=== PATIENT | female | born 1940 | race Caucasian/White ===

== ENCOUNTER 2016-09-19 09:43 | Day surgery (SDC) | payer MEDICARE ==
[~2016-09-19] VITALS: Ht 152.4 cm; Wt 46.3 kg
[2016-09-19 10:11] VITALS: BP 129/52
[2016-09-19] MEDS ORDERED: SODIUM CHLORIDE 0.9% 1,000 ML IV SCH (10:30)
[2016-09-19] MEDS ORDERED: MONT10TA6 PO (10:42)
[2016-09-19] MEDS ORDERED: FLUT9.9S PO (10:42)
[2016-09-19] MEDS ORDERED: DIPH25TA65 PO (10:42)
[2016-09-19] MEDS ORDERED: AMLO5TAB2 PO (10:42)
[2016-09-19] MEDS ORDERED: CALC1TAB86 PO (10:42)
[2016-09-19] MEDS ORDERED: HYDR12.53 PO (10:42)
[2016-09-19] MEDS ORDERED: ATOR10TA9 PO (10:42)
[2016-09-19] MEDS ORDERED: RIVA20TA PO (10:42)
[2016-09-19] MEDS ORDERED: LOSA25TA5 PO (10:42)
[2016-09-19] MEDS ORDERED: METO25TA35 PO (10:42)
[2016-09-19] MEDS ORDERED: PROPOFOL 10 MG/ML, 50ML ONE (11:44)
== END 2016-09-19 13:37 | disposition home or self-care (01) ==
LOC: CACL 09:43
PROVIDERS: ATTEND Internal Medicine Cardiovascular Disease
DX: I34.0 Nonrheumatic mitral (valve) insufficiency (principal); I35.1 Nonrheumatic aortic (valve) insufficiency; I35.0 Nonrheumatic aortic (valve) stenosis; I34.2 Nonrheumatic mitral (valve) stenosis; I25.10 Atherosclerotic heart disease of native coronary artery without angina pectoris; I36.1 Nonrheumatic tricuspid (valve) insufficiency; I37.1 Nonrheumatic pulmonary valve insufficiency; I10 Essential (primary) hypertension; J45.909 Unspecified asthma, uncomplicated; E78.5 Hyperlipidemia, unspecified; I48.0 Paroxysmal atrial fibrillation
CPT/HCPCS: 93312; 93321; 93325; J2704

== ENCOUNTER 2016-10-05 10:10 | Day surgery (SDC) | payer MEDICARE ==
[~2016-10-05] VITALS: Ht 152.4 cm; Wt 46.4 kg
[~2016-10-05 10:10] MED LIST: AMLO5TAB2 PO; ATOR10TA9 PO; CALC1TAB86 PO; DIPH25TA65 PO; FLUT9.9S PO; HYDR12.53 PO; LOSA25TA5 PO; METO25TA35 PO; MONT10TA6 PO; RIVA20TA PO
[2016-10-05] MEDS ORDERED: SODIUM CHLORIDE 0.9% 1,000 ML IV SCH (10:42)
[2016-10-05 10:47] VITALS: BP 132/59
[2016-10-05] MEDS ORDERED: ONDANSETRON 2MG/ML, 2ML IVPush PRN (11:00)
[2016-10-05] MEDS ORDERED: ASPIRIN 325 MG TABLET EC PO ONE (11:00)
[2016-10-05] MEDS ORDERED: ACETAMINOPHEN 325 MG TABLET PO PRN (11:00)
[2016-10-05] MEDS ORDERED: BISACODYL 10 MG SUPP PR PRN (11:00)
[2016-10-05] MEDS ORDERED: BISACODYL 5 MG EC TABLET PO PRN (11:00)
[2016-10-05] MEDS ORDERED: ZOLPIDEM 5MG TABLET PO PRN (11:00)
[2016-10-05] MEDS ORDERED: ASPIRIN 325 MG TABLET EC ONE (11:35)
[2016-10-05] MEDS ORDERED: FENTANYL PF 100 MCG/2ML ONE (11:47)
[2016-10-05] MEDS ORDERED: MIDAZOLAM 1 MG/ML, 5ML ONE (11:48)
[2016-10-05] MEDS ORDERED: LIDOCAINE 2%, 20ML ONE (11:48)
[2016-10-05] MEDS ORDERED: SODIUM CHLORIDE 0.9% 500 ML IV SCH (13:00)
== END 2016-10-05 15:49 | disposition home or self-care (01) ==
LOC: CACL 10:10
PROVIDERS: ATTEND Internal Medicine Cardiovascular Disease
DX: I25.10 Atherosclerotic heart disease of native coronary artery without angina pectoris (principal); I10 Essential (primary) hypertension; E78.2 Mixed hyperlipidemia; I34.2 Nonrheumatic mitral (valve) stenosis; I48.0 Paroxysmal atrial fibrillation; Z82.49 Family history of ischemic heart disease and other diseases of the circulatory system
CPT/HCPCS: 93005; 93458; C1894; J2250; J3010; J3490; Q9967

== ENCOUNTER 2016-11-15 05:12 | Inpatient (IN) | payer MEDICARE ==
[2016-11-14 14:16] LABS: PATH.CAST-FLAG NOT PRESENT; SPERM-FLAG NOT PRESENT; SRC-FLAG NOT PRESENT; XTAL-FLAG NOT PRESENT; YLC-FLAG NOT PRESENT
[2016-11-14 14:31] LABS: BLOOD UREA NITROGEN 11 mg/dL (7-18)
[2016-11-14 14:35] LABS: ASPARTATE AMINO TRANSFERASE 26 U/L (15-37)
[~2016-11-15] VITALS: Ht 152.4 cm; Wt 54.2 kg
[2016-11-15 05:30] VITALS: BP_SYST 134; BP_SYST 138; BP_DIAS 66; BP_DIAS 68
[2016-11-15] MEDS ORDERED: CHLORHEXIDINE MOUTHWASH 15 ML UDC MM SCH (05:30)
[2016-11-15] MEDS ORDERED: ALBUMIN HUMAN 5% 500 ML IV ONE (05:30)
[2016-11-15] MEDS ORDERED: INSULIN ASPART 100 UNITS/ML, PEN SQ-INSULIN SCH (06:00)
[2016-11-15] MEDS ORDERED: MIDAZOLAM 10MG/2 ML ONE (06:37)
[2016-11-15] MEDS ORDERED: FENTANYL PF 1000 MCG/20ML ONE (06:37)
[2016-11-15] MEDS ORDERED: MANNITOL PMX 20% 500 ML IVPB PRN (07:30)
[2016-11-15] MEDS ORDERED: VANCOMYCIN 700 MG in SODIUM CHLORIDE 0.9% 100 ML IV PRN (07:30)
[2016-11-15] MEDS ORDERED: EPINEPHRINE 2 MG in SODIUM CHLORIDE 0.9% 248 ML IV SCH (07:30)
[2016-11-15] MEDS ORDERED: PHENYLEPHRINE 10 MG in SODIUM CHLORIDE 0.9% 249 ML IV PRN ×2 (07:30→10:13)
[2016-11-15] MEDS ORDERED: DEXMEDETOMIDINE 200 MCG in SODIUM CHLORIDE 0.9% 48 ML IV SCH (07:30)
[2016-11-15] MEDS ORDERED: REGULAR INSULIN 62.5 UNITS in SODIUM CHLORIDE 0.9% 249.375 ML IV PRN ×2 (07:30→10:13)
[2016-11-15] MEDS ORDERED: POTASSIUM CHLORIDE 80 MEQ, SODIUM BICARBONATE 8.4% 10 MEQ, MAGNESIUM SULFATE 0.5 GM, LI... IV PRN (07:30)
[2016-11-15] MEDS ORDERED: MUPIROCIN OINT 2%, 22GM TP SCH (09:00)
[2016-11-15] MEDS ORDERED: SODIUM CHLORIDE 0.9% 1,000 ML IV PRN ×2 (10:13→12:00)
[2016-11-15] MEDS ORDERED: SODIUM CHLORIDE 0.9% 1,000 ML IV ONE (10:13)
[2016-11-15] MEDS ORDERED: DOBUTAMINE 250 MG in SODIUM CHLORIDE 0.9% 230 ML IV PRN (10:13)
[2016-11-15] MEDS ORDERED: DEXMEDETOMIDINE 200 MCG in SODIUM CHLORIDE 0.9% 48 ML IV PRN (10:13)
[2016-11-15] MEDS ORDERED: NITROGLYCERIN/D5W PMX 250 ML IV PRN (10:13)
[2016-11-15] MEDS ORDERED: ACETAMINOPHEN 650 MG SUPP PR PRN (10:30)
[2016-11-15] MEDS ORDERED: MEPERIDINE/PF 25MG/0.5ML IVPush PRN (10:30)
[2016-11-15] MEDS ORDERED: PROCHLORPERAZINE 5 MG/ML, 2ML IVPush PRN (10:30)
[2016-11-15] MEDS ORDERED: EPINEPHRINE 2 MG in SODIUM CHLORIDE 0.9% 248 ML IV PRN (10:30)
[2016-11-15] MEDS ORDERED: HYDROcodone/APAP 10/325 MG TABLET PO PRN (10:30)
[2016-11-15] MEDS ORDERED: DEXTROSE 4 GM TAB.CHEW PO PRN (10:30)
[2016-11-15] MEDS ORDERED: MIDAZOLAM 1 MG/ML, 5ML IVPush PRN (10:30)
[2016-11-15] MEDS ORDERED: GLUCAGON 1 MG IM PRN (10:30)
[2016-11-15] MEDS ORDERED: BISACODYL 10 MG SUPP PR PRN (10:30)
[2016-11-15] MEDS ORDERED: SODIUM BICARB 8.4%, 50ML SYRINGE IV PRN (10:30)
[2016-11-15] MEDS ORDERED: BISACODYL 5 MG EC TABLET PO PRN (10:30)
[2016-11-15] MEDS ORDERED: DEXTROSE 50%, 50ML SYRINGE IVPush PRN (10:30)
[2016-11-15] MEDS ORDERED: AMINOCAPROIC ACID 250 MG/ML, 20ML ONE (10:37)
[2016-11-15] MEDS ORDERED: ALBUMIN HUMAN 25% 50 ML ONE (10:37)
[2016-11-15] MEDS ORDERED: CALCIUM CHLORIDE 10%, 10ML SYR ONE (10:37)
[2016-11-15] MEDS ORDERED: HEPARIN 1,000 UNITS/ML, 30ML ONE ×2 (10:37→10:39)
[2016-11-15] MEDS ORDERED: PROTAMINE SULFATE 10 MG/ML, 25ML ONE (10:37)
[2016-11-15] MEDS ORDERED: LIDOCAINE 2% 100MG/5ML SYRINGE ONE (10:38)
[2016-11-15] MEDS ORDERED: HEPARIN 1,000 UNITS/ML, 10ML ONE (10:38)
[2016-11-15 10:57] LABS: ABG COLLECTION SITE ARTERIAL LINE
[2016-11-15] MEDS: KSCALE TO 4.5 IV SCH ×3 (11:34→22:30)
[2016-11-15] MEDS: MAGNESIUM SULFATE 1 GM in SODIUM CHLORIDE 0.9% 50 ML IVPB SCH (11:49)
[2016-11-15] MEDS: SODIUM CHLORIDE FLUSH 10ML SYR IVF SCH ×3 (11:49→21:39)
[2016-11-15] MEDS: LACTATED RINGERS 500 ML IVBOLUS PRN ×2 (12:15→14:09)
[2016-11-15] MEDS: morphine SULFATE 10 MG/ML, 1ML IVPush PRN ×2 (13:15→23:02)
[2016-11-15] MEDS ORDERED: ROCURONIUM 10 MG/ML ONE (15:15)
[2016-11-15] MEDS ORDERED: PROPOFOL 10 MG/ML, 20ML ONE (15:15)
[2016-11-15] MEDS: ONDANSETRON 2MG/ML, 2ML IVPush PRN ×2 (16:31→22:26)
[2016-11-15] MEDS ORDERED: ALBUMIN HUMAN 5% 250 ML IV ONE (17:00)
[2016-11-15] MEDS ORDERED: POTASSIUM CHLORIDE 30 MEQ in SODIUM CHLORIDE 0.9% 100 ML IV ONE (17:30)
[2016-11-15] MEDS: CEFUROXIME 1.5 GM in SODIUM CHLORIDE 0.9% 50 ML IVPB SCH (19:11)
[2016-11-15] MEDS: VANCOMYCIN 700 MG in SODIUM CHLORIDE 0.9% 250 ML IVPB SCH (19:36)
[2016-11-15] MEDS: ACETAMINOPHEN 325 MG TABLET PO PRN (19:53)
[2016-11-15] MEDS: DOCUSATE 100 MG CAPSULE PO SCH (21:39)
[2016-11-15] MEDS: MUPIROCIN OINT 2%, 22GM NAS SCH (21:39)
[2016-11-15] MEDS: INSULIN ASPART 100 UNITS/ML, PEN SQ-INSULIN PRN (22:30)
[2016-11-15] MEDS ORDERED: POTASSIUM CHLORIDE PMX 100 ML IV ONE (23:45)
[2016-11-16] MEDS: INSULIN ASPART 100 UNITS/ML, PEN SQ-INSULIN PRN ×6 (00:10→21:04)
[2016-11-16] MEDS: KSCALE TO 4.5 IV SCH ×2 (04:30→10:39)
[2016-11-16 05:51] LABS: ABG COLLECTION SITE ARTERIAL LINE
[2016-11-16 05:52] LABS: BLOOD UREA NITROGEN 8 mg/dL (7-18)
[2016-11-16] MEDS: CEFUROXIME 1.5 GM in SODIUM CHLORIDE 0.9% 50 ML IVPB SCH (06:30)
[2016-11-16] MEDS: VANCOMYCIN 700 MG in SODIUM CHLORIDE 0.9% 250 ML IVPB SCH (06:36)
[2016-11-16] MEDS: ONDANSETRON 2MG/ML, 2ML IVPush PRN (06:36)
[2016-11-16] MEDS: OXYcodone IR 5MG TABLET PO PRN ×5 (07:30→22:46)
[2016-11-16] MEDS ORDERED: CALCIUM CHLORIDE 13.6 MEQ in SODIUM CHLORIDE 0.9% 100 ML IV ONE (07:30)
[2016-11-16] MEDS ORDERED: ETOMIDATE 20 MG/10 ML ONE (08:00)
[2016-11-16] MEDS ORDERED: PROPOFOL 10 MG/ML, 100ML IV ONE (08:00)
[2016-11-16] MEDS ORDERED: MIDAZOLAM 1 MG/ML, 5ML ONE (08:00)
[2016-11-16] MEDS: PANTOPRAZOLE 40 MG IV IVPush SCH (08:08)
[2016-11-16] MEDS: SODIUM CHLORIDE FLUSH 10ML SYR IVF SCH ×4 (08:08→21:04)
[2016-11-16] MEDS: DOCUSATE 100 MG CAPSULE PO SCH ×2 (08:09→21:00)
[2016-11-16] MEDS: MUPIROCIN OINT 2%, 22GM NAS SCH ×2 (08:09→21:04)
[2016-11-16] MEDS: ASPIRIN 81 MG TABLET EC PO SCH (08:09)
[2016-11-16] MEDS ORDERED: DOBUTAMINE/D5W PMX 0 ML ONE (09:41)
[2016-11-16] MEDS: CHLORHEXIDINE MOUTHWASH 15 ML UDC MM SCH ×2 (10:33→21:04)
[2016-11-16] MEDS ORDERED: LIDOCAINE 2%, 20ML ONE (10:48)
[2016-11-16] MEDS ORDERED: SODIUM CHLORIDE 0.9%, 500ML IVBOLUS ONE ×2 (12:30→15:45)
[2016-11-16] MEDS: MAGNESIUM SULFATE 1 GM in SODIUM CHLORIDE 0.9% 50 ML IVPB SCH (13:01)
[2016-11-16] MEDS ORDERED: FUROSEMIDE 20 MG/2 ML IV ONE ×2 (14:30→15:00)
[2016-11-16] MEDS ORDERED: MIDAZOLAM 1 MG/ML, 2ML IVPush ONE (15:29)
[2016-11-16] MEDS ORDERED: PHARMACY MAY ADJ FOR RENAL FX MC SCH (15:30)
[2016-11-16] MEDS ORDERED: LIDOCAINE-MPF 1%, 2ML ENDO PRN (15:30)
[2016-11-16] MEDS ORDERED: ETOMIDATE 20 MG/10 ML IVPush ONE (15:31)
[2016-11-16] MEDS: CEFTRIAXONE PMX 1GM/50ML 50 ML IV SCH (16:19)
[2016-11-16] MEDS: METRONIDAZOLE PMX 500MG/100ML 100 ML IV SCH ×2 (16:44→22:46)
[2016-11-16 17:04] LABS: ABG COLLECTION SITE ARTERIAL LINE
[2016-11-16] MEDS ORDERED: SODIUM BICARB 8.4%, 50ML SYRINGE IVPush ONE (17:30)
[2016-11-16] MEDS ORDERED: WARFARIN 5 MG TABLET PO-COUM ONE (18:00)
[2016-11-16] MEDS: NS + 20MEQ KCL 1,000 ML IV SCH (18:01)
[2016-11-16] MEDS: ALBUTEROL/IPRATROPIUM 2.5MG/0.5MG, 3 ML INLINE SCH ×3 (18:30→23:00)
[2016-11-16] MEDS: ACETAMINOPHEN 325 MG TABLET PO PRN (21:52)
[2016-11-17] MEDS: ALBUTEROL/IPRATROPIUM 2.5MG/0.5MG, 3 ML INLINE SCH ×6 (02:10→23:00)
[2016-11-17] MEDS: OXYcodone IR 5MG TABLET PO PRN ×3 (02:30→15:34)
[2016-11-17 04:26] LABS: ABG COLLECTION SITE NOT DOCUMENTED
[2016-11-17 05:37] LABS: BLOOD UREA NITROGEN 16 mg/dL (7-18)
[2016-11-17] MEDS: PROPOFOL 100 ML IV PRN (06:18)
[2016-11-17] MEDS: NS + 20MEQ KCL 1,000 ML IV SCH ×2 (06:57→21:09)
[2016-11-17] MEDS ORDERED: FUROSEMIDE 40 MG/4 ML ONE (07:28)
[2016-11-17] MEDS: METRONIDAZOLE PMX 500MG/100ML 100 ML IV SCH ×3 (07:44→22:45)
[2016-11-17] MEDS: INSULIN ASPART 100 UNITS/ML, PEN SQ-INSULIN PRN ×4 (07:49→21:09)
[2016-11-17] MEDS ORDERED: FUROSEMIDE 40 MG/4 ML IV ONE (08:00)
[2016-11-17] MEDS ORDERED: POTASSIUM CHLORIDE PMX 100 ML IV ONE ×2 (08:00→16:00)
[2016-11-17] MEDS: KSCALE TO 4.5 IV SCH ×3 (08:00→20:00)
[2016-11-17] MEDS: SODIUM CHLORIDE FLUSH 10ML SYR IVF SCH ×4 (09:00→21:08)
[2016-11-17] MEDS: MUPIROCIN OINT 2%, 22GM NAS SCH ×2 (09:36→21:08)
[2016-11-17] MEDS: PANTOPRAZOLE 40 MG IV IVPush SCH (09:36)
[2016-11-17] MEDS: DOCUSATE 100 MG CAPSULE PO SCH ×2 (09:36→21:00)
[2016-11-17] MEDS: ASPIRIN 81 MG TABLET EC PO SCH (09:37)
[2016-11-17] MEDS: ENOXAPARIN 40 MG/0.4 ML SQ SCH (09:37)
[2016-11-17] MEDS: CHLORHEXIDINE MOUTHWASH 15 ML UDC MM SCH ×2 (10:30→21:09)
[2016-11-17] MEDS: MAGNESIUM SULFATE 1 GM in SODIUM CHLORIDE 0.9% 50 ML IVPB SCH (12:08)
[2016-11-17] MEDS: CEFTRIAXONE PMX 1GM/50ML 50 ML IV SCH (15:52)
[2016-11-17] MEDS ORDERED: WARFARIN 5 MG TABLET PO-COUM ONE (18:00)
[2016-11-17] MEDS: FUROSEMIDE 40 MG/4 ML IV SCH (22:45)
[2016-11-18] MEDS: KSCALE TO 4.5 IV SCH ×4 (02:00→20:00)
[2016-11-18] MEDS: ALBUTEROL/IPRATROPIUM 2.5MG/0.5MG, 3 ML INLINE SCH ×2 (03:00→05:27)
[2016-11-18 03:07] LABS: BLOOD UREA NITROGEN 14 mg/dL (7-18)
[2016-11-18] MEDS ORDERED: POTASSIUM CHLORIDE PMX 100 ML IV ONE ×2 (05:00→11:00)
[2016-11-18] MEDS: PROPOFOL 100 ML IV PRN (05:50)
[2016-11-18] MEDS: METRONIDAZOLE PMX 500MG/100ML 100 ML IV SCH ×3 (08:02→23:43)
[2016-11-18] MEDS: FUROSEMIDE 40 MG/4 ML IV SCH ×2 (08:02→21:17)
[2016-11-18] MEDS: MUPIROCIN OINT 2%, 22GM NAS SCH ×2 (08:36→21:17)
[2016-11-18] MEDS: ASPIRIN 81 MG TABLET EC PO SCH (08:36)
[2016-11-18] MEDS: DOCUSATE 100 MG CAPSULE PO SCH ×2 (09:00→21:17)
[2016-11-18] MEDS: SODIUM CHLORIDE FLUSH 10ML SYR IVF SCH ×2 (10:14→21:17)
[2016-11-18] MEDS: PANTOPRAZOLE 40 MG IV IVPush SCH (10:14)
[2016-11-18] MEDS: METOPROLOL TARTRATE 25 MG TABLET PO SCH ×2 (10:14→17:02)
[2016-11-18] MEDS: ENOXAPARIN 40 MG/0.4 ML SQ SCH (10:52)
[2016-11-18] MEDS: NS + 20MEQ KCL 1,000 ML IV SCH ×2 (13:50→21:19)
[2016-11-18] MEDS: INSULIN ASPART 100 UNITS/ML, PEN SQ-INSULIN PRN ×2 (13:56→18:38)
[2016-11-18] MEDS: CEFTRIAXONE PMX 1GM/50ML 50 ML IV SCH (13:59)
[2016-11-18] MEDS ORDERED: POTASSIUM CHLORIDE 30 MEQ in SODIUM CHLORIDE 0.9% 100 ML IV ONE (17:00)
[2016-11-18] MEDS: ACETAMINOPHEN 325 MG TABLET PO PRN (17:17)
[2016-11-18] MEDS ORDERED: WARFARIN 3 MG TABLET PO-COUM ONE (18:00)
[2016-11-18] MEDS: ONDANSETRON 2MG/ML, 2ML IVPush PRN (21:26)
[2016-11-19] MEDS: KSCALE TO 4.5 IV SCH (04:00)
[2016-11-19 04:19] LABS: ABG COLLECTION SITE RIGHT BRACHIAL
[2016-11-19 04:27] LABS: BLOOD UREA NITROGEN 15 mg/dL (7-18)
[2016-11-19] MEDS ORDERED: POTASSIUM CHLORIDE PMX 100 ML IV ONE (05:00)
[2016-11-19] MEDS: ONDANSETRON 2MG/ML, 2ML IVPush PRN ×3 (06:22→19:24)
[2016-11-19] MEDS: METOPROLOL TARTRATE 25 MG TABLET PO SCH ×2 (06:26→17:58)
[2016-11-19] MEDS: INSULIN ASPART 100 UNITS/ML, PEN SQ-INSULIN PRN ×4 (07:45→20:35)
[2016-11-19] MEDS: METRONIDAZOLE PMX 500MG/100ML 100 ML IV SCH (07:46)
[2016-11-19] MEDS: DOCUSATE 100 MG CAPSULE PO SCH ×2 (07:46→19:26)
[2016-11-19] MEDS: PANTOPRAZOLE 40 MG IV IVPush SCH (07:46)
[2016-11-19] MEDS: ASPIRIN 81 MG TABLET EC PO SCH (07:46)
[2016-11-19] MEDS: MUPIROCIN OINT 2%, 22GM NAS SCH ×2 (07:47→19:25)
[2016-11-19] MEDS: POTASSIUM CHLORIDE 20 MEQ PACKET PO SCH (07:58)
[2016-11-19] MEDS: SODIUM CHLORIDE FLUSH 10ML SYR IVF SCH ×2 (07:59→19:25)
[2016-11-19] MEDS: ENOXAPARIN 40 MG/0.4 ML SQ SCH (08:43)
[2016-11-19] MEDS ORDERED: FUROSEMIDE 40 MG/4 ML IV SCH (09:00)
[2016-11-19] MEDS ORDERED: WARFARIN 1 MG TABLET PO-COUM ONE (18:00)
[2016-11-20 04:54] LABS: BLOOD UREA NITROGEN 21 mg/dL (7-18)
[2016-11-20] MEDS ORDERED: AMIODARONE 150 MG in DEXTROSE 5% 100 ML IV ONE (05:30)
[2016-11-20] MEDS ORDERED: AMIODARONE 900 MG in DEXTROSE 5% 482 ML IV PRN (05:30)
[2016-11-20] MEDS ORDERED: FILTER 0.22 MICRON IV PRN (05:30)
[2016-11-20] MEDS: INSULIN ASPART 100 UNITS/ML, PEN SQ-INSULIN PRN ×2 (05:55→11:57)
[2016-11-20] MEDS: METOPROLOL TARTRATE 25 MG TABLET PO SCH ×2 (07:07→18:26)
[2016-11-20] MEDS ORDERED: POTASSIUM CHLORIDE 20 MEQ TAB.ER.PRT PO ONE (08:00)
[2016-11-20] MEDS ORDERED: MAGNESIUM HYDROXIDE 8%, 30ML UDC PO PRN (08:30)
[2016-11-20] MEDS: DOCUSATE 100 MG CAPSULE PO SCH ×2 (09:10→21:21)
[2016-11-20] MEDS: ASPIRIN 81 MG TABLET EC PO SCH (09:12)
[2016-11-20] MEDS: MUPIROCIN OINT 2%, 22GM NAS SCH (09:12)
[2016-11-20] MEDS: FUROSEMIDE 20 MG TABLET PO SCH (09:12)
[2016-11-20] MEDS: PANTOPROZOLE 40MG TABLET PO SCH (10:21)
[2016-11-20] MEDS: POTASSIUM CHLORIDE 20 MEQ PACKET PO SCH (11:56)
[2016-11-20 14:56] VITALS: BP 146/68
[2016-11-20] MEDS ORDERED: WARFARIN 1 MG TABLET PO-COUM ONE (18:00)
[2016-11-20 20:00] VITALS: BP 124/74
[2016-11-20] MEDS: SODIUM CHLORIDE FLUSH 10ML SYR IVF SCH (21:21)
[2016-11-21 02:00] VITALS: BP 145/90
[2016-11-21] MEDS: METOPROLOL TARTRATE 25 MG TABLET PO SCH ×2 (05:39→18:09)
[2016-11-21 07:19] VITALS: BP 138/75
[2016-11-21 08:08] LABS: BLOOD UREA NITROGEN 17 mg/dL (7-18)
[2016-11-21] MEDS: DOCUSATE 100 MG CAPSULE PO SCH ×2 (09:00→21:00)
[2016-11-21] MEDS: PANTOPROZOLE 40MG TABLET PO SCH (09:06)
[2016-11-21] MEDS: FUROSEMIDE 20 MG TABLET PO SCH (09:06)
[2016-11-21] MEDS: ASPIRIN 81 MG TABLET EC PO SCH (09:06)
[2016-11-21] MEDS: POTASSIUM CHLORIDE 20 MEQ PACKET PO SCH (09:06)
[2016-11-21] MEDS: SODIUM CHLORIDE FLUSH 10ML SYR IVF SCH ×2 (09:09→20:26)
[2016-11-21 13:15] VITALS: BP 137/83
[2016-11-21] MEDS ORDERED: WARFARIN 1 MG TABLET PO-COUM SCH (18:00)
[2016-11-21 20:18] VITALS: BP 136/75
[2016-11-21] MEDS: DIPHENHYDRAMINE 25 MG CAPSULE PO PRN (20:26)
[2016-11-22 03:00] VITALS: BP 151/76
[2016-11-22] MEDS ORDERED: FILTER 0.22 MICRON IV PRN (05:00)
[2016-11-22] MEDS ORDERED: AMIODARONE 900 MG in DEXTROSE 5% 482 ML IV PRN (05:00)
[2016-11-22] MEDS ORDERED: AMIODARONE 150 MG in DEXTROSE 5% 100 ML IV ONE (05:00)
[2016-11-22 05:24] LABS: BLOOD UREA NITROGEN 10 mg/dL (7-18)
[2016-11-22 07:44] VITALS: BP 148/89
[2016-11-22] MEDS: SODIUM CHLORIDE FLUSH 10ML SYR IVF SCH ×2 (07:46→21:16)
[2016-11-22] MEDS: ASPIRIN 81 MG TABLET EC PO SCH (07:46)
[2016-11-22] MEDS: PANTOPROZOLE 40MG TABLET PO SCH (07:46)
[2016-11-22] MEDS: METOPROLOL TARTRATE 25 MG TABLET PO SCH ×2 (07:46→18:02)
[2016-11-22] MEDS: DOCUSATE 100 MG CAPSULE PO SCH ×2 (07:46→21:16)
[2016-11-22] MEDS: FUROSEMIDE 20 MG TABLET PO SCH (07:46)
[2016-11-22] MEDS: POTASSIUM CHLORIDE 20 MEQ PACKET PO SCH (07:46)
[2016-11-22] MEDS ORDERED: POTASSIUM CHLORIDE 20 MEQ TAB.ER.PRT PO ONE (08:00)
[2016-11-22] MEDS ORDERED: AMIODARONE 200 MG TABLET PO SCH (09:00)
[2016-11-22] MEDS: NYSTATIN 500,000 UNITS/5 ML UDC PO SCH ×2 (13:06→21:17)
[2016-11-22 15:42] VITALS: BP 153/80
[2016-11-22] MEDS ORDERED: WARFARIN 2 MG TABLET PO-COUM SCH (18:00)
[2016-11-22 18:02] VITALS: BP 153/81
[2016-11-22 20:11] VITALS: BP 146/77
[2016-11-22] MEDS: AMIODARONE 200 MG TABLET PO SCH (21:17)
[2016-11-22] MEDS: DIPHENHYDRAMINE 25 MG CAPSULE PO PRN (21:34)
[2016-11-23 02:00] VITALS: BP 165/76
[2016-11-23 05:15] LABS: BLOOD UREA NITROGEN 8 mg/dL (7-18)
[2016-11-23] MEDS: METOPROLOL TARTRATE 25 MG TABLET PO SCH ×2 (05:37→18:34)
[2016-11-23 07:11] VITALS: BP 165/75
[2016-11-23] MEDS: POTASSIUM CHLORIDE 20 MEQ PACKET PO SCH (08:00)
[2016-11-23] MEDS ORDERED: POTASSIUM CHLORIDE 20 MEQ TAB.ER.PRT PO ONE (09:00)
[2016-11-23] MEDS: DOCUSATE 100 MG CAPSULE PO SCH ×2 (09:00→20:50)
[2016-11-23] MEDS: PANTOPROZOLE 40MG TABLET PO SCH (09:17)
[2016-11-23] MEDS: FUROSEMIDE 20 MG TABLET PO SCH (09:17)
[2016-11-23] MEDS: AMIODARONE 200 MG TABLET PO SCH ×2 (09:17→20:50)
[2016-11-23] MEDS: SODIUM CHLORIDE FLUSH 10ML SYR IVF SCH ×2 (09:18→20:48)
[2016-11-23] MEDS: NYSTATIN 500,000 UNITS/5 ML UDC PO SCH ×2 (09:18→20:51)
[2016-11-23] MEDS: ASPIRIN 81 MG TABLET EC PO SCH (09:18)
[2016-11-23] MEDS: LISINOPRIL 10 MG TABLET PO SCH ×2 (09:18→20:51)
[2016-11-23] MEDS ORDERED: LIDOCAINE 2%, 20ML ONE (10:00)
[2016-11-23] MEDS: ONDANSETRON 2MG/ML, 2ML IVPush PRN (13:16)
[2016-11-23 13:38] VITALS: BP 132/78
[2016-11-23] MEDS ORDERED: WARFARIN 2 MG TABLET PO-COUM ONE (18:00)
[2016-11-23 18:31] VITALS: BP 123/66
[2016-11-23 20:35] VITALS: BP 124/70
[2016-11-23] MEDS: ATORVASTATIN 10 MG TABLET PO SCH (20:50)
[2016-11-23] MEDS: DIPHENHYDRAMINE 25 MG CAPSULE PO PRN (20:51)
[2016-11-24] VITALS (7 sets, daily range): BP systolic 111–154; BP diastolic 60–75
[2016-11-24 06:04] LABS: BLOOD UREA NITROGEN 8 mg/dL (7-18)
[2016-11-24] MEDS: METOPROLOL TARTRATE 25 MG TABLET PO SCH ×2 (06:18→17:14)
[2016-11-24] MEDS ORDERED: LIDOCAINE 2%, 20ML ONE (08:23)
[2016-11-24] MEDS: ASPIRIN 81 MG TABLET EC PO SCH (08:45)
[2016-11-24] MEDS: POTASSIUM CHLORIDE 20 MEQ PACKET PO SCH (08:45)
[2016-11-24] MEDS: PANTOPROZOLE 40MG TABLET PO SCH (08:45)
[2016-11-24] MEDS: AMIODARONE 200 MG TABLET PO SCH ×2 (08:45→21:25)
[2016-11-24] MEDS: FUROSEMIDE 20 MG TABLET PO SCH (08:45)
[2016-11-24] MEDS: NYSTATIN 500,000 UNITS/5 ML UDC PO SCH ×2 (08:45→21:26)
[2016-11-24] MEDS: LISINOPRIL 10 MG TABLET PO SCH ×2 (08:45→21:26)
[2016-11-24] MEDS: SODIUM CHLORIDE FLUSH 10ML SYR IVF SCH ×2 (08:46→21:25)
[2016-11-24] MEDS: DOCUSATE 100 MG CAPSULE PO SCH ×2 (08:46→21:00)
[2016-11-24] MEDS ORDERED: POTASSIUM CHLORIDE 20 MEQ TAB.ER.PRT PO ONE (09:00)
[2016-11-24] MEDS ORDERED: WARFARIN 2 MG TABLET PO-COUM SCH (18:00)
[2016-11-24] MEDS: ATORVASTATIN 10 MG TABLET PO SCH (21:26)
[2016-11-24] MEDS: DIPHENHYDRAMINE 25 MG CAPSULE PO PRN (21:26)
[2016-11-24] MEDS: ACETAMINOPHEN 325 MG TABLET PO PRN (21:27)
[2016-11-25 01:08] VITALS: BP 151/68
[2016-11-25 05:51] LABS: BLOOD UREA NITROGEN 8 mg/dL (7-18)
[2016-11-25 06:41] VITALS: BP 131/74
[2016-11-25] MEDS: METOPROLOL TARTRATE 25 MG TABLET PO SCH (06:43)
[2016-11-25] MEDS ORDERED: PANT40TA5 PO (07:15)
[2016-11-25] MEDS ORDERED: WARF2.5T PO-COUM (07:15)
[2016-11-25] MEDS ORDERED: AMIO200T42 PO (07:15)
[2016-11-25] MEDS ORDERED: NYST1000 PO (07:15)
[2016-11-25] MEDS ORDERED: ASPI-621 PO (07:15)
[2016-11-25 07:30] VITALS: BP 137/76
[2016-11-25] MEDS: PANTOPROZOLE 40MG TABLET PO SCH (07:44)
[2016-11-25] MEDS: NYSTATIN 500,000 UNITS/5 ML UDC PO SCH (07:44)
[2016-11-25] MEDS: ASPIRIN 81 MG TABLET EC PO SCH (07:44)
[2016-11-25] MEDS: AMIODARONE 200 MG TABLET PO SCH (07:44)
[2016-11-25] MEDS ORDERED: WARFARIN 2.5 MG TABLET PO-COUM SCH (18:00)
== END 2016-11-25 12:56 | disposition home or self-care (01) | DRG 220 ==
LOC: 5SO 05:12 → CSU 10:22 → 5SO 11-20 14:42 → DCLOUNGE 11-25 12:10
PROVIDERS: ADMIT Thoracic Surgery (Cardiothoracic Vascular Surgery); ATTEND Thoracic Surgery (Cardiothoracic Vascular Surgery)
PROC: 02RG08Z Replacement of Mitral Valve with Zooplastic Tissue, Open Approach (ICD-10-PCS; 2016-11-15)
PROC: 02B70ZK Excision of Left Atrial Appendage, Open Approach (ICD-10-PCS; 2016-11-15)
PROC: 5A1221Z Performance of Cardiac Output, Continuous (ICD-10-PCS; 2016-11-15)
PROC: B246ZZ4 Ultrasonography of Right and Left Heart, Transesophageal (ICD-10-PCS; 2016-11-15)
PROC: 5A1213Z Performance of Cardiac Pacing, Intermittent (ICD-10-PCS; 2016-11-15)
PROC: 02580ZZ Destruction of Conduction Mechanism, Open Approach (ICD-10-PCS; principal; 2016-11-15 07:30)
PROC: 0W993ZZ Drainage of Right Pleural Cavity, Percutaneous Approach (ICD-10-PCS; 2016-11-16)
PROC: 0B9J8ZZ Drainage of Left Lower Lung Lobe, Via Natural or Artificial Opening Endoscopic (ICD-10-PCS; 2016-11-16)
PROC: 0B9F8ZZ Drainage of Right Lower Lung Lobe, Via Natural or Artificial Opening Endoscopic (ICD-10-PCS; 2016-11-16)
PROC: 0W9B3ZZ Drainage of Left Pleural Cavity, Percutaneous Approach (ICD-10-PCS; 2016-11-23)
PROC: 0W993ZZ Drainage of Right Pleural Cavity, Percutaneous Approach (ICD-10-PCS; 2016-11-24)
PROC: 0T9B70Z Drainage of Bladder with Drainage Device, Via Natural or Artificial Opening (ICD-10-PCS; 2016-11-24)
DX: I08.0 Rheumatic disorders of both mitral and aortic valves (principal); D68.69 Other thrombophilia; J90 Pleural effusion, not elsewhere classified; J93.9 Pneumothorax, unspecified; I48.0 Paroxysmal atrial fibrillation; I10 Essential (primary) hypertension; E78.5 Hyperlipidemia, unspecified; I44.1 Atrioventricular block, second degree; Z90.49 Acquired absence of other specified parts of digestive tract; I25.10 Atherosclerotic heart disease of native coronary artery without angina pectoris; I44.0 Atrioventricular block, first degree; Z87.891 Personal history of nicotine dependence; Z79.01 Long term (current) use of anticoagulants; Z79.899 Other long term (current) drug therapy
CPT/HCPCS: 31624; 32555; 36415; 36600; 71010; 71020; 80048; 80053; 81001; 82040; 82330; 82800; 82803; 82810; 82947; 82962; 83036; 83735; 84132; 84295; 84478; 85014; 85018; 85025; 85049; 85347; 85610; 85730; 86850; 86900; 86923; 87040; 87070; 87081; 87086; 87205; 88304; 88305; 93005; 93312; 93321; 93325; 93880; 94002; 94003; 94640; J0696; J0697; J1644; J1650; J1815; J1940; J2250; J2405; J2704; J2720; J3010; J3370; J3475; J3480; J3490; J7120; J7620; P9041; P9045; P9047; C1751; C1760; C9113; J0171; J0282; J2270; J2370; J7030; J7040; J7050; J7060; Q0163

== ENCOUNTER 2016-12-19 12:52 | Inpatient (IN) | payer MEDICARE ==
[~2016-12-19] VITALS: Ht 152.4 cm; Wt 44.5 kg
[~2016-12-19 12:52] MED LIST changes: +AMIO200T42 PO; +ASPI-621 PO; +NYST1000 PO; +PANT40TA5 PO; +WARF2.5T PO-COUM
[2016-12-19] MEDS ORDERED: SODIUM CHLORIDE FLUSH 10ML SYR IVF ONE (13:00)
[2016-12-19] MEDS ORDERED: SODIUM CHLORIDE 0.9% 1,000ML IVBOLUS ONE (13:00)
[2016-12-19] MEDS ORDERED: METOPROLOL 1 MG/ML, 5ML ONE (13:03)
[2016-12-19] MEDS: METOPROLOL 1 MG/ML, 5ML IVPush PRN ×2 (13:05→18:03)
[2016-12-19] MEDS ORDERED: ONDANSETRON 2MG/ML, 2ML ONE (13:09)
[2016-12-19] MEDS ORDERED: PLEASE ENTER HEIGHT AND WEIGHT MC SCH (13:30)
[2016-12-19 13:31] LABS: ASPARTATE AMINO TRANSFERASE 37 U/L (15-37); BLOOD UREA NITROGEN 14 mg/dL (7-18)
[2016-12-19] MEDS ORDERED: POTA10TA57 PO (13:32)
[2016-12-19] MEDS ORDERED: METO25TA35 PO (13:33)
[2016-12-19] MEDS ORDERED: FAMO-79 PO (13:36)
[2016-12-19 13:37] LABS: IS PT STATUS REG ER OR PRE ER? YES
[2016-12-19] MEDS ORDERED: ACETAMINOPHEN 325 MG TABLET PO PRN (16:30)
[2016-12-19] MEDS ORDERED: morphine SULFATE 10 MG/ML, 1ML IVPush PRN (16:30)
[2016-12-19] MEDS ORDERED: ONDANSETRON 2MG/ML, 2ML IVPush PRN (16:30)
[2016-12-19] MEDS ORDERED: BISACODYL 10 MG SUPP PR PRN (16:30)
[2016-12-19] MEDS ORDERED: POLYETHYLENE GLYCOL 17 GM PACKET PO PRN (16:30)
[2016-12-19] MEDS ORDERED: DOCUSATE 100 MG CAPSULE PO PRN (16:30)
[2016-12-19] MEDS ORDERED: HYDROcodone/APAP 5/325 TABLET PO PRN (16:30)
[2016-12-19] MEDS ORDERED: LABETALOL 5MG/ML 40ML VIAL IVPush PRN (16:30)
[2016-12-19] MEDS ORDERED: OMNIPAQUE 350 MG/ML, 100ML BOTTLE ONE (17:16)
[2016-12-19] MEDS ORDERED: WARFARIN 2.5 MG TABLET PO-COUM SCH (18:00)
[2016-12-19 18:05] VITALS: BP 108/64
[2016-12-19] MEDS ORDERED: WARFARIN 5 MG TABLET PO-COUM ONE (18:30)
[2016-12-19] MEDS: VANCOMYCIN 50 MG/ML ORAL SUSP PO SCH ×2 (18:35→20:43)
[2016-12-19] MEDS: ENOXAPARIN 40 MG/0.4 ML SQ SCH (18:35)
[2016-12-19 19:25] VITALS: BP 102/56
[2016-12-19] MEDS: SODIUM CHLORIDE FLUSH 10ML SYR IVF SCH (20:16)
[2016-12-19] MEDS ORDERED: TEMAZEPAM 15 MG CAPSULE ONE (20:39)
[2016-12-19] MEDS: METOPROLOL TARTRATE 25 MG TABLET PO SCH (20:42)
[2016-12-19] MEDS: NYSTATIN 500,000 UNITS/5 ML UDC PO SCH (20:43)
[2016-12-19] MEDS: CALCIUM/VITAMIN D3 250-125 TABLET PO SCH (20:43)
[2016-12-19] MEDS ORDERED: TEMAZEPAM 15 MG CAPSULE PO PRN (21:00)
[2016-12-19] MEDS ORDERED: ATORVASTATIN 10 MG TABLET PO SCH (21:00)
[2016-12-20 02:06] VITALS: BP 106/66
[2016-12-20 05:47] VITALS: BP 105/72
[2016-12-20] MEDS: VANCOMYCIN 50 MG/ML ORAL SUSP PO SCH ×3 (05:48→17:32)
[2016-12-20] MEDS: METOPROLOL TARTRATE 25 MG TABLET PO SCH ×3 (05:48→17:31)
[2016-12-20 05:55] LABS: BLOOD UREA NITROGEN 7 mg/dL (7-18)
[2016-12-20 08:04] VITALS: BP 108/68
[2016-12-20] MEDS: NYSTATIN 500,000 UNITS/5 ML UDC PO SCH (08:35)
[2016-12-20] MEDS: SODIUM CHLORIDE FLUSH 10ML SYR IVF SCH (08:35)
[2016-12-20] MEDS: CALCIUM/VITAMIN D3 250-125 TABLET PO SCH (08:36)
[2016-12-20] MEDS ORDERED: AMLODIPINE 5 MG TABLET PO SCH (09:00)
[2016-12-20] MEDS ORDERED: HYDROCHLOROTHIAZIDE 12.5 MG CAPSULE PO SCH (09:00)
[2016-12-20] MEDS ORDERED: ASPIRIN 81 MG TABLET EC PO SCH (09:00)
[2016-12-20] MEDS ORDERED: K-LYTE 25 MEQ TABLET.EFF PO SCH (09:00)
[2016-12-20] MEDS ORDERED: VANC1VIA3 PO (14:33)
[2016-12-20] MEDS ORDERED: METO25TA35 PO (14:33)
[2016-12-20] MEDS: ENOXAPARIN 40 MG/0.4 ML SQ SCH (16:30)
[2016-12-20 16:32] VITALS: BP 115/71
[2016-12-20] MEDS ORDERED: WARFARIN 3 MG TABLET PO-COUM SCH (18:00)
== END 2016-12-20 18:19 | disposition home or self-care (01) | DRG 372 ==
LOC: ED 13:23 → EDIP 15:31 → 5SO 17:25
PROVIDERS: ADMIT Internal Medicine; ATTEND Internal Medicine
DX: A04.7 Enterocolitis due to Clostridium difficile (principal); E87.1 Hypo-osmolality and hyponatremia; I48.0 Paroxysmal atrial fibrillation; E78.5 Hyperlipidemia, unspecified; I11.9 Hypertensive heart disease without heart failure; D75.89 Other specified diseases of blood and blood-forming organs; I35.1 Nonrheumatic aortic (valve) insufficiency; R73.9 Hyperglycemia, unspecified; Z66 Do not resuscitate; Z82.49 Family history of ischemic heart disease and other diseases of the circulatory system; Z85.038 Personal history of other malignant neoplasm of large intestine; Z95.2 Presence of prosthetic heart valve; Z90.49 Acquired absence of other specified parts of digestive tract
CPT/HCPCS: 36415; 71010; 71275; 80048; 80053; 83605; 83735; 84443; 84484; 85025; 85379; 85610; 85730; 87324; 93005; 93306; 99285; J1650; J3370; Q9967; J7030